=== PATIENT | female | born 1990 | race Caucasian/White ===

== ENCOUNTER 2016-07-22 07:46 | Inpatient (IN) | payer OTHER ==
--- NOTE | 2016-07-22 08:56 | GHP ---
[f rep st] PREOP HISTORY AND PHYSICAL DATE OF ADMISSION: 07/22/2016 CHIEF COMPLAINT: Labor. HISTORY OF PRESENT ILLNESS: The patient is a 26-year-old, G1, P0, female who is at 39 and 5/7 weeks gestation, who presents with complaints of painful contractions that have been occurring since 4 a.m. No loss of fluid or vaginal bleeding. PAST MEDICAL HISTORY: Significant for abnormal Pap and LEEP. She also has seasonal allergies. PAST SURGICAL HISTORY: LEEP. SOCIAL HISTORY: She is . 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 REVIEW OF SYSTEMS: Positive for painful contractions. No loss of fluid or vaginal bleeding. EXAM: Blood pressure is 114/78, pulse is 82. GENERAL: She is uncomfortable with contractions. ABDOMEN: Gravid and nontender. The fetus is vertex. Cervical exam was 5 complete and 0. heart tones in the 130s with moderate variability. She is claudette about every 5 minutes. LABS: Significant for B positive antibody screen negative. Rubella immune. RPR nonreactive. Hepatitis B surface antigen negative, HIV negative, gonorrhea and chlamydia negative. GBS negative on 06/27/2014. ASSESSMENT AND PLAN: This is a 26-year-old, G1, P0, female who is at 39 and 5/ 7 weeks gestation in active labor. well-being is reassuring. GBS is negative. Pain management: The patient would prefer an unmedicated delivery. Will plan on expectant management. /[id number]/MODL MTDD
[2016-07-22] MEDS ORDERED: TERBUTALINE SULFATE 1 MG/ML VIAL IV PRN (08:59)
[2016-07-22] MEDS ORDERED: EPSOM SALT 454 GM TP PRN (08:59)
[2016-07-22] MEDS ORDERED: LIDOCAINE 1% 30 ML SDV SC PRN (08:59)
[2016-07-22] MEDS ORDERED: MINERAL OIL 60 ML OIL TP PRN (08:59)
[2016-07-22] MEDS ORDERED: LR 1,000 ML IV PRN (08:59)
[2016-07-22] MEDS ORDERED: OXYTOCIN/RINGERS LACTATE 1,000 ML IV PRN (08:59)
[2016-07-22 10:05] LABS: % IMMATURE GRANULYOCYTES 0.8 % (0.0-1.1); ABSOLUTE IMMATURE GRANULOCYTES 0.11 10^3/uL (0.00-0.10); ADD DIFF? NO; ADD MORPH? NO; ADD SCAN? NO; ATYPICAL LYMPHOCYTE FLAG 0 (0-99); FRAGMENT RBC FLAG 0 (0-99); HEMATOCRIT 40.6 % (38.0-47.0); HEMOGLOBIN 14.2 g/dL (12.6-16.3); LEFT SHIFT FLG 10 (0-99); LIPEMIA HEMOLYSIS FLAG 90 (0-99); MEAN CELL HEMOGLOBIN 32.1 pg (27.9-34.1); MEAN CELL VOLUME 91.9 fL (81.5-99.8); MEAN PLATELET VOLUME 10.5 fL (8.7-11.7); PLATELET CLUMPS FLAG 0 (0-99); PLATELET COUNT 242 10^3/uL (150-400); RED BLOOD CELL COUNT 4.42 10^6/uL (4.18-5.33); RED CELL DISTRIBUTION WIDTH 12.7 % (11.5-15.2)
[2016-07-22] MEDS ORDERED: TERBUTALINE SULFATE 1 MG/ML VIAL ONE (11:00)
[2016-07-22] MEDS ORDERED: AMMONIA AROMATIC 1 EACH AMP IH ONE ×2 (11:00→11:03)
[2016-07-22] MEDS ORDERED: LIDOCAINE 1% 30 ML SDV ONE ×2 (11:00→11:03)
[2016-07-22] MEDS ORDERED: MISOPROSTOL 200 MCG TAB ONE (11:01)
[2016-07-22] MEDS ORDERED: OXYTOCIN 10 UNIT/ML VIAL ONE (11:01)
[2016-07-22] MEDS ORDERED: LIDOCAINE 1% 2 ML INJ ONE (11:02)
--- NOTE | 2016-07-22 12:54 | OBPROG ---
[id number] GBS negative. Expect pushing soon. Subjective: 26 yo @ 39 5/7, active labor-uncomfortable with the contractions. Objective: 07/22/16 09:00 Patient ABO/Rh B POSITIVE 07/22/16 09:00 114/78 82 - SVE Dilation (cm): 9 Effacement (%): 100 Station: 0 Current Contraction Pattern: Regular FHR (bpm): 140 FHR Pattern Variability: Moderate FHR Category: 2 Membranes: AROM Amniotic Fluid Color: Clear ICD10 Worksheet Patient Problems: Problems Problem Status Diagnosed Labor established Acute
[2016-07-22] MEDS ORDERED: SIMETHICONE 80 MG TAB CHEW PO PRN (14:51)
[2016-07-22] MEDS ORDERED: HYDROCODONE/APAP 5/325 TAB PO PRN (14:51)
[2016-07-22] MEDS ORDERED: HYDROCORTISONE 0.5% CREAM TP PRN (14:51)
--- NOTE | 2016-07-22 14:53 | OBPROC ---
- Labor and Delivery Onset of Contractions Date: 07/22/16 Onset of Contractions Time: 04:00 Onset of Contractions Type: Spontaneous Rupture of Membranes Date: 07/22/16 Rupture of Membranes Time: 12:30 Rupture of Membranes Type: Artificial Amniotic Fluid Color: Clear Dilation Complete Time: 13:30 Delivery Type: Spontaneous Placenta Delivery Date: 07/22/16 Episiotomy/Laceration: 2nd Degree Repair: 3-0, Vicryl EBL: 200 ML Complications: None - Medications Labor Augmentation/Induction Meds Used: None Anesthesia: Local (Specify) - Info Infant A Delivery Date: 07/22/16 Delivery Time: 14:35 Sex of : Male Score (1 Min): 8 Score (5 Min): 9
[2016-07-22] MEDS: IBUPROFEN 600 MG TAB PO PRN ×2 (15:49→21:59)
[2016-07-23] MEDS: IBUPROFEN 600 MG TAB PO PRN ×4 (04:01→21:59)
[2016-07-23] MEDS: DOCUSATE SODIUM 100 MG CAP PO PRN ×2 (10:04→21:59)
--- NOTE | 2016-07-23 12:34 | SOAPPROG ---
SOAP Progress Note Assessment/Plan: Assessment: PPD#1, doing well Rh pos, Rub immune s/p tdap and flu Plan: routine care plan home PPD#2 f/u with Dr ESPINOSA for care and also for h/o HSIL pap 07/23/16 12:32 Subjective: Feeling great. Wants to shower. And up walking, just a little sore, ice is helping. Baby is wanting to breastfeed all the time. Bleeding not too heavy. Tolerating regular diet. Able to urinate normally. Objective: Vital Signs Temp Pulse Resp BP Pulse Ox 36.4 C 89 16 97/63 L 94 07/23/16 08:00 07/23/16 08:00 07/23/16 08:00 07/23/16 08:00 07/23/16 08:00 Laboratory Results 07/22/16 09:00 07/22/16 07/23/16 07/24/16 05:59 05:59 05:59 Output Total 200 Balance -200 Gen: NAD, alert, awake Resp: unlabored CV: RRR Abd: soft, nontender, uterus firm below umbilicus Ext: no edema ICD10 Worksheet Patient Problems: Problems Problem Status Diagnosed Labor established Acute
[2016-07-24] MEDS: IBUPROFEN 600 MG TAB PO PRN ×2 (05:35→11:43)
--- NOTE | 2016-07-24 07:58 | OBGCSDC ---
General Delivery Information - General Info : 1 Para: 1 Delivery Date: 07/22/16 Delivery Time: 14:35 Delivery Physician/CNM: Siena Rosenberg Admission Date: 07/22/16 Labs: Patient ABO/Rh B POSITIVE 07/22/16 09:00 Hct 40.6 % (38.0-47.0) 07/22/16 09:00 - Ramona Info Infant A Sex of Infant: Male Score (1 Min): 8 Score (5 Min): 9 Vaginal - Diagnosis IUP (Weeks): 39 5/7 Labor: Spontaneous Rupture of Membranes Type: Artificial Amniotic Fluid Color: Clear Laceration: 2nd Degree Repair: 3-0, Vicryl Complications: None - Operations/Procedures Delivery Type: Spontaneous - Delivery EBL: 200 ML Anesthesia: Local (Specify) Discharge Information - Discharge Information Discharge Medications: Ibuprofen, Vitamins, Vicodin Complications: none Condition: Good Instruction/Follow Up: Two Weeks Discharge Physician/CNM: Annalisa Anglin Discharge Date: 07/24/16 Dictated: No
[2016-07-24 08:29] VITALS: BP 104/75; PULSE 74; RESP 16; TEMP 98.6; O2SAT 96
[2016-07-24] MEDS: DOCUSATE SODIUM 100 MG CAP PO PRN (11:44)
== END 2016-07-24 13:00 | disposition home or self-care (01) | DRG 775 ==
LOC: FLD 07:46 → FOB 18:00
PROVIDERS: ADMIT Obstetrics & Gynecology; ATTEND Obstetrics & Gynecology
PROC: 10907ZC Drainage of Amniotic Fluid, Therapeutic from Products of Conception, Via Natural or Artificial Opening (ICD-10-PCS; principal; 2016-07-22)
PROC: 0KQM0ZZ Repair Perineum Muscle, Open Approach (ICD-10-PCS; principal; 2016-07-22)
PROC: 10E0XZZ Delivery of Products of Conception, External Approach (ICD-10-PCS; principal; 2016-07-22)
DX: O70.1 Second degree perineal laceration during delivery (principal); Z3A.39 39 weeks gestation of pregnancy; Z37.0 Single live birth
CPT/HCPCS: G0463; J2590; J3105

== ENCOUNTER → 2018-08-20 | Outpatient (CLI) | payer OTHER | LOC: FIMAGING 12:53 | PROVIDERS: ATTEND Obstetrics & Gynecology | DX: Z36.89 Encounter for other specified antenatal screening (principal); O36.62X0 Maternal care for excessive fetal growth, second trimester, not applicable or unspecified; Z3A.20 20 weeks gestation of pregnancy; Z98.890 Other specified postprocedural states; Z83.2 Family history of diseases of the blood and blood-forming organs and certain disorders involving the immune mechanism ==

== ENCOUNTER → 2018-11-17 | Outpatient (CLI) | payer OTHER | LOC: FLAB 08:48 ==